=== PATIENT | male | born 1950 | race Hispanic/Latino ===

== ENCOUNTER → 2018-04-11 | Day surgery (SDC) | payer OTHER ==
--- NOTE | 2018-04-07 13:56 | Diagnostic Imaging Report ---
EXAMINATION: PA and lateral views of the chest. COMPARISON: None CLINICAL HISTORY: Preoperative examination, hernia surgery DISCUSSION: The lungs are well expanded. No focal airspace consolidation, pleural effusion, or pneumothorax. Atherosclerotic calcification of the thoracic aorta. Otherwise normal cardiomediastinal contour. No acute osseous abnormality. IMPRESSION: No acute cardiopulmonary abnormalities. Signed by: Dr. Boone Vega M.D. on 04/07/2018 1:53 PM
[2018-04-07 14:00] LABS: BASOPHILS # (AUTO) 0.1 (0.0-0.1); BASOPHILS % 0.8 % (0.0-1.0); EOSINOPHILS # (AUTO) 0.3 (0.0-0.4); EOSINOPHILS % 2.9 % (0.0-6.0); HEMATOCRIT 42.8 % (38.2-49.6); HEMOGLOBIN 14.7 g/dL (14.0-18.0); LYMPHOCYTES # (AUTO) 2.9 (1.0-3.2); LYMPHOCYTES % 25.8 % (18.0-39.1); MEAN CORPUSCULAR HEMOGLOBIN 30.5 pg (28-32); MEAN CORPUSCULAR HGB CONC 34.3 g/dL (31-35); MEAN CORPUSCULAR VOLUME 88.8 fL (81-99); MONOCYTES # (AUTO) 0.9 (0.2-0.8); MONOCYTES % 7.6 % (4.4-11.3); NEUTROPHILS % 62.5 % (38.7-80.0); PLATELET COUNT 211 x10e3/uL (140-360); RED BLOOD COUNT 4.82 x10e6/uL (4.3-5.7); RED CELL DISTRIBUTION WIDTH 13.7 % (11.7-14.4)
[2018-04-07 14:22] LABS: ANION GAP 8.3 mmol/L (8-16); BLOOD UREA NITROGEN 14 mg/dL (7-26); BUN/CREATININE RATIO 13 (6-25); CALCIUM 9.3 mg/dL (8.4-10.2); CARBON DIOXIDE 28 mmol/L (22-29); CHLORIDE 103 mmol/L (98-107); CREATININE, SERUM 1.08 mg/dL (0.72-1.25); EST GLOMERULAR FILTRATION RATE > 60 ML/MIN (60-); GLUCOSE 107 mg/dL (74-118); POTASSIUM 4.3 mmol/L (3.5-5.1); SODIUM 135 mmol/L (136-145)
[~2018-04-11] MED LIST: ACETAMINOPHEN 1000 MG/100 ML IV ONE; BUPIVACAINE 0.25%/EPI 30ML SDV INJ ONE; CEFAZOLIN SOD 1 GM VIAL ONE; DEXAMETHASONE SOD PHOS INJ 4 MG/ML VIAL ONE; FENTANYL CITRATE/PF 100MCG/2 ML INJ ONE; HYDROMORPHONE 2MG/ML 2 MG/ML ML ONE; LIDOCAINE HCL 2% LOCAL INJ 5 ML SDV VIAL INJ ONE; LISINOPRIL; LOSARTAN POTAS100 MG PO; LOVASTATIN40 MG PO; MIDAZOLAM HCL 2 MG/2 ML VIAL ONE; MORPHINE SULFATE 2 MG/ML SYR ONE; ONDANSETRON HCL INJ 2 MG/ML VIAL ONE; PROPOFOL IV EMULSION 10 MG/ML 20 ML VIAL ONE; ROCURONIUM BROMIDE 10 MG/ML 5ML VIAL ONE; SEVOFLURANE INHAL SOLN 250 ML PEN BTL ONE; SYMBICORT
[2018-04-11 13:15] VITALS: BP 139/78
--- NOTE | 2018-04-11 13:38 | Operative Report ---
DATE OF PROCEDURE: April 11, 2018 PREOPERATIVE DIAGNOSES 1. Ventral hernia. 2. Incisional ventral hernia. POSTOPERATIVE DIAGNOSES 1. Ventral hernia. 2. Incisional ventral hernia. PROCEDURE PERFORMED: Repair of ventral epigastric hernia and umbilical hernia. ANESTHESIA: General endotracheal. ESTIMATED BLOOD LOSS: Minimal. DRAINS: None. COMPLICATIONS: None. INDICATIONS AND FINDINGS: The patient is an obese male who complained of pain superior to the umbilicus for several weeks. He also had noticed a lump in the umbilical area. He had a cholecystectomy in the past. INTRAOPERATIVE FINDINGS: The patient had a defect in the area of the umbilicus and, as previously stated, superior to that was a 2nd epigastric defect with herniation of properitoneal fat through a sac. DESCRIPTION OF PROCEDURE: With the patient lying on the operative table in the supine position, after administration of general anesthesia, he was prepped and draped for repair of ventral hernia. The procedure was begun by making an incision up and down and curved to the left of the umbilicus. The dissection was carried through the skin and subcutaneous tissue until both hernias were identified. They were dissected free from the surrounding tissues. The umbilical skin was detached from the hernia, and then we developed medial and lateral left and right flaps. The abdominal cavity was entered. The small, thin sacs of both hernias were excised. The free intra-abdominal cavity was accessed. Then we decided to place a Proceed ventral patch, medium size, through the larger epigastric defect in the preperitoneal space, and this also covered the smaller umbilical ventral hernia defect. The mesh was secured to the local tissues using a series of interrupted 2-0 Ethibond sutures. Then the stabs were closed. Then the fascia was loosely closed over the PVP patch with #0 Ethibond sutures to reinforce the repair. We placed a flat polypropylene mesh, 3 x 6 inches, cut to cover the entire operative field and secured to the fascia with 2-0 Ethibond suture. The wound was irrigated. The bleeding points were cauterized. The sponge and instrument counts were correct. Therefore, we closed the abdomen. Then the fascia was infiltrated with 0.25% Marcaine with epinephrine, a total of 40 mL. Then we closed the wound using 2-0 Vicryl to tack the umbilicus to the fascia. Then the soft tissues were closed using 2-0 catgut. The skin was closed with a combination of 3-0 silk and april. Sterile dressing was applied including a binder. The patient tolerated the procedure well and was taken to the recovery room in stable condition. Job#: [id number]
--- OUTSIDE RECORDS SUMMARY | 2018-04-15 13:16 | XMS REPORT ---
Author Author [facility] Address Unknown Phone Unavailable Care Team Providers Care Overlay Operator Name Role Phone HEYDI BRYANT Unavailable Unavailable Problems This patient has no known problems. Allergies, Adverse Reactions, Alerts This patient has no known allergies or adverse reactions. Medications This patient has no known medications. Results Test Description Test Time Test Comments Text Results Atomic Results Result Comments CHEST 2 VIEWS 2018-04-07 13:51:00 [place] [id number] Patient Name: ELIANA GREWAL MR #: [id number] : 1950 Age/Sex: 67/M Req #: [id number] Adm Physician: Ordered by: HEYDI BRYANT MD Report #: [id number] Location: OR Room/Bed: Procedure: [id number] DX/CHEST 2 VIEWS Exam Date: 04/07/18 Exam Time: 1337 REPORT STATUS: Signed EXAMINATION: PA and lateral views of the chest. COMPARISON: None CLINICAL HISTORY: Preoperative examination, hernia surgery DISCUSSION: The lungs are well expanded. No focal airspace consolidation, pleural effusion, or pneumothorax. Atherosclerotic calcification of the thoracic aorta. Otherwise normal cardiomediastinal contour. No acute osseous abnormality. IMPRESSION: No acute cardiopulmonary abnormalities. Signed by: Dr. Jocelynn Hope M.D. on 04/07/2018 1:53 PM Dictated By: JOCELYNN HOPE MD [id number] Transcribed By: GÓMEZ on 04/07/18 135 COPY TO: HEYDI BRYANT MD
== END | disposition home or self-care (01) ==
LOC: OR 06:55
PROVIDERS: ATTEND Surgery
DX: K43.2 Incisional hernia without obstruction or gangrene (principal); K43.9 Ventral hernia without obstruction or gangrene; E66.9 Obesity, unspecified; Z90.49 Acquired absence of other specified parts of digestive tract; J45.909 Unspecified asthma, uncomplicated; I10 Essential (primary) hypertension; E78.00 Pure hypercholesterolemia, unspecified; K25.9 Gastric ulcer, unspecified as acute or chronic, without hemorrhage or perforation; F17.210 Nicotine dependence, cigarettes, uncomplicated; Z68.34 Body mass index [BMI] 34.0-34.9, adult; Z01.810 Encounter for preprocedural cardiovascular examination; Z01.812 Encounter for preprocedural laboratory examination; Z01.818 Encounter for other preprocedural examination
CPT/HCPCS: 36415; 49560; 49568; 71046; 80048; 85025; 93005; C1781 ×2; J0690; J1100; J1170; J2001; J2250; J2270; J2405